=== PATIENT | male | born 1995 | race Caucasian/White ===

== ENCOUNTER 2023-09-12 05:40 | Emergency (ER) | payer OTHER ==
[~2023-09-12] VITALS: Ht 182.9 cm; Wt 54.4 kg
[2023-09-12] MEDS ORDERED: AMOX-CLAV ER 11 EAC1 (05:52)
[2023-09-12] MEDS ORDERED: Dicyclomine HCl 20 MG Tab PO ONE (06:15)
[2023-09-12] MEDS ORDERED: Ondansetron 4 MG SoluTab SL ONE (06:15)
[2023-09-12] MEDS ORDERED: CLIN300 PO (06:19)
[2023-09-12] MEDS ORDERED: ONDA4ODT MM (06:19)
[2023-09-12] MEDS ORDERED: PROBIOTIC1 EA13 PO (06:19)
== END 2023-09-12 06:31 | disposition home or self-care (01) ==
LOC: ER 05:40
DX: K08.89 Other specified disorders of teeth and supporting structures (principal); R10.9 Unspecified abdominal pain
CPT/HCPCS: 99282; A9270

== ENCOUNTER 2024-07-31 23:56 | Emergency (ER) | payer OTHER ==
[~2024-07-31] VITALS: Ht 193 cm; Wt 88.5 kg
[~2024-07-31 23:56] MED LIST: AMOX-CLAV ER 11 EAC1; CLIN300 PO; ONDA4ODT MM; PROBIOTIC1 EA13 PO
[2024-08-01 01:07] LABS: BASOPHILS ABSOLUTE AUTO 0.06 K/mm3 (0.00-0.23); BASOPHILS PERCENT AUTO 1 % (0-2); EOSINOPHILS ABSOLUTE AUTO 0.23 K/mm3 (0.00-0.68); EOSINOPHILS PERCENT AUTO 3 % (0-6); Hematocrit 38.8 % (37.0-53.0); Hemoglobin 14.3 g/dL (13.5-17.5); IMMATURE GRAN ABSOLUTE AUTO 0.02 K/mm3 (0.00-0.10); IMMATURE GRAN PERCENT AUTO 0 % (0-1); LYMPHOCYTES ABSOLUTE AUTO 2.95 K/mm3 (0.84-5.20); LYMPHOCYTES PERCENT AUTO 40 % (21-46); MONOCYTES ABSOLUTE AUTO 0.59 K/mm3 (0.16-1.47); MONOCYTES PERCENT AUTO 8 % (4-13); Mean Corpuscular HGB 33.3 pg (26.0-34.0); Mean Corpuscular HGB Conc 36.9 g/dL (31.5-36.5); Mean Corpuscular Volume 90 fL (80-100); NEUTROPHILS PERCENT AUTO 48 % (41-73); Platelet Count 235 K/mm3 (150-400); RDW Coefficient Variation 12.5 % (11.7-14.2); RDW Standard Deviation 41.2 fL (35.1-46.3); White Blood Cell Count 7.35 K/mm3 (4.00-11.30)
[2024-08-01 01:24] LABS: International Normalized Ratio 1.1; Prothrombin Time Results 11.7 Sec (9.7-11.5)
[2024-08-01 01:29] LABS: Albumin, Blood 3.9 g/dL (3.4-5.0); Albumin/Globulin Ratio 1.4 (0.8-1.8); Bilirubin, Total 1.4 mg/dL (0.1-1.0); Bun/Creatinine Ratio 16.5 (12.0-20.0); Calcium, Blood 8.1 mg/dL (8.5-10.1); Creatinine, Blood 0.91 mg/dL (0.60-1.20); Globulin, Blood 2.7 g/dL (2.2-4.0); Potassium, Blood 3.5 mmol/L (3.5-5.5); Total Protein, Blood 6.6 g/dL (6.4-8.2)
[2024-08-01 03:02] LABS: Free Thyroxine 1.08 ng/dL (0.70-1.60)
[2024-08-01 03:19] LABS: Thyroid Stimulating Hormone 2.5 uIU/mL (0.360-4.800)
== END 2024-08-01 03:41 | disposition home or self-care (01) ==
LOC: ER 23:56
PROVIDERS: Student in an Organized Health Care Education/Training Program
DX: R00.2 Palpitations (principal); K62.5 Hemorrhage of anus and rectum; F15.90 Other stimulant use, unspecified, uncomplicated; Z91.040 Latex allergy status; Z91.018 Allergy to other foods; F17.290 Nicotine dependence, other tobacco product, uncomplicated
CPT/HCPCS: 71045; 80053; 82272; 84439; 84443; 84484; 85025; 85610; 85730; 93005; 93010; 99285-25

== ENCOUNTER 2024-09-06 22:01 | Emergency (ER) | payer OTHER ==
[~2024-09-06] VITALS: Ht 193 cm; Wt 88.5 kg
[2024-09-07] MEDS ORDERED: Oxymetazoline 0.05% Nasal Relief Spray 15mL BTL ONE (01:10)
== END 2024-09-07 01:25 | disposition other institution (70) ==
LOC: ER 22:01
DX: R04.0 Epistaxis (principal); Z91.040 Latex allergy status; Z91.018 Allergy to other foods; F17.290 Nicotine dependence, other tobacco product, uncomplicated
CPT/HCPCS: 30901; 99283-25; A9270

== ENCOUNTER 2024-12-31 20:05 | Emergency (ER) | payer OTHER | END 2024-12-31 20:42 | disposition left against medical advice (07) | LOC: ER 20:05 | DX: S99.929A Unspecified injury of unspecified foot, initial encounter (principal); Z53.21 Procedure and treatment not carried out due to patient leaving prior to being seen by health care provider ==